=== PATIENT | male | born 1985 | race Caucasian/White ===

== ENCOUNTER 2018-01-09 08:22 | Emergency (ER) | payer OTHER ==
[2018-01-09 08:29] VITALS: BP 153/78; RESP 18; TEMP 98.2
[2018-01-09] MEDS ORDERED: ONDANSETRON 4 MG ODT STARTER PACK 2 TAB BTL PO STA (08:57)
--- NOTE | 2018-01-09 08:58 | ED ---
General Adult HPI - General Chief complaint: Nausea/Vomiting/Diarrhea Stated complaint: NAUSEA Time Seen by Provider: 01/09/18 08:49 Source: patient, RN notes reviewed Mode of arrival: ambulatory Limitations: no limitations - History of Present Illness Initial comments: Patient 32-year-old male who presents emergency room today with a chief complaint of feeling nauseated. He states he woke up this morning with some dry heaves. He does not that he was at a restaurant last night please may be food poisoning. 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 His x-rays been drinking lots of fluids. Patient states that he just needs something for nausea. He denies any other complaints or symptoms. Patient denies any recent fever, chills, shortness of breath, chest pain, back pain, abdominal pain, numbness or tingling, dysuria or hematuria, constipation or diarrhea, headaches or visual changes, or any other complaints. - Related Data Previous Rx's Medication Instructions Recorded Ondansetron Odt [Zofran ODT] 4 mg PO Q8HR PRN #10 tab 01/09/18 Allergies Allergy/AdvReac Type Severity Reaction Status Date / Time No Known Allergies Allergy Verified 01/09/18 08:41 Review of Systems ROS Statement: Those systems with pertinent positive or pertinent negative responses have been documented in the HPI. ROS Other: All systems not noted in ROS Statement are negative. 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 Eye: extra-ocular movements are intact. No nystagmus. There is normal conjunctiva bilaterally. No signs of icterus. Ears, nose, mouth and throat: There are moist mucous membranes and no oral lesions. Neck: The neck is supple, there is no tenderness or JVD. Cardiovascular: There is a regular rate and rhythm. No murmur, rub or gallop is appreciated. Respiratory: Lungs are clear to auscultation, respirations are non-labored, breath sounds are equal. No wheezes, stridor, rales, or rhonchi. Gastrointestinal: Soft, non-distended, non-tender abdomen without masses or organomegaly noted. There is no rebound or guarding present. No CVA tenderness. Musculoskeletal: Normal ROM, no tenderness. Strength 5/5. Sensation intact Neurological: A&O x 3. CN II-XII intact, There are no obvious motor or sensory deficits. Coordination appears grossly intact. Speech is normal. Skin: Skin is warm and dry and no rashes or lesions are noted. Psychiatric: Cooperative, appropriate mood & affect, normal judgment. Limitations: no limitations Course Vital Signs 01/09/18 08:27 Temperature 98.2 F Pulse Rate 113 H Respiratory 18 Rate Blood Pressure 153/78 O2 Sat by Pulse 96 Oximetry Medical Decision Making - Medical Decision Making Patient stating that he came to the emergency room for the presenting he would be able to work. He states that she is expressing nausea no pain. Patient declines any IV fluids or testing. Patient given starter pack of Zofran. Discharged home with a work note. Advised return if symptoms increase or worsen or for any other concerns. Disposition Clinical Impression: Nausea Disposition: HOME SELF-CARE Condition: Good Instructions: Acute Nausea and Vomiting (ED) Additional Instructions: Please use medication as discussed. Please follow-up with family doctor in the next 2 days of symptoms have not improved. Please return to emergency room if the symptoms increase or worsen or for any other concerns. Prescriptions: Ondansetron Odt [Zofran ODT] 4 mg PO Q8HR PRN #10 tab PRN Reason: Nausea Is patient prescribed a controlled substance at d/c from ED?: No Referrals: None,Stated [Primary Care Provider] - 1-2 days Time of Disposition: 08:56
[2018-01-09 08:59] VITALS: PULSE 98
== END 2018-01-09 09:14 | disposition home or self-care (01) ==
LOC: EC 08:22
DX: R11.2 Nausea with vomiting, unspecified (principal); F17.200 Nicotine dependence, unspecified, uncomplicated; Z86.19 Personal history of other infectious and parasitic diseases; Z86.14 Personal history of Methicillin resistant Staphylococcus aureus infection
CPT/HCPCS: 99283; S0119

== ENCOUNTER 2018-03-01 19:27 | Emergency (ER) | payer OTHER ==
--- NOTE | 2018-03-01 19:38 | ED ---
General Adult HPI - General Stated complaint: Overdose Time Seen by Provider: 03/01/18 19:29 Source: RN notes reviewed, old records reviewed - History of Present Illness Initial comments: This is a 32-year-old male presenting for evaluation regarding overdose. Patient presents regarding heroin overdose of Vistaril overdose as well as alcohol use today. Patient admits to going to increased stress stress related to job loss family, pain [place]. 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 ROS Other: All systems not noted in ROS Statement are negative. Past Medical History Past Medical History: No Reported History Additional Past Medical History / Comment(s): hep C History of Any Multi-Drug Resistant Organisms: None Reported, MRSA Date of last positivie culture/infection: 2012 MDRO Source:: back Past Surgical History: No Surgical Hx Reported Past Psychological History: Anxiety, Depression Smoking Status: Current every day smoker Past Alcohol Use History: None Reported Past Drug Use History: None Reported, Prescription Drug Abuse General Exam General appearance: alert, in no apparent distress Head exam: Present: atraumatic, normocephalic, normal inspection Eye exam: Present: normal appearance, PERRL, EOMI. Absent: scleral icterus, conjunctival injection, periorbital swelling ENT exam: Present: normal exam, mucous membranes moist Neck exam: Present: normal inspection. Absent: tenderness, meningismus, lymphadenopathy Respiratory exam: Present: normal lung sounds bilaterally. Absent: respiratory distress, wheezes, rales, rhonchi, stridor Cardiovascular Exam: Present: regular rate, normal rhythm, normal heart sounds. Absent: systolic murmur, diastolic murmur, rubs, gallop, clicks GI/Abdominal exam: Present: soft, normal bowel sounds. Absent: distended, tenderness, guarding, rebound, rigid Extremities exam: Present: normal inspection, full ROM, normal capillary refill. Absent: tenderness, pedal edema, joint swelling, calf tenderness Back exam: Present: normal inspection Neurological exam: Present: alert, oriented X3, CN II-XII intact Psychiatric exam: Present: normal affect, normal mood Skin exam: Present: warm, dry, intact, normal color. Absent: rash Course Vital Signs 03/01/18 19:43 Temperature 98.1 F Pulse Rate 112 H Respiratory 20 Rate Blood Pressure 139/76 O2 Sat by Pulse 94 L Oximetry - Reevaluation(s) Reevaluation #1: Patient is denying homicidal or suicidal thoughts Medical Decision Making - Medical Decision Making 32 male the ER for evaluation of overdose heroin overdose, patient resides with Narcan, remains asymptomatic throughout ER stay. Patient is awake and alert Disposition Clinical Impression: Heroin overdose Disposition: HOME SELF-CARE Condition: Good Instructions: Abuso de los narcticos (ED) Is patient prescribed a controlled substance at d/c from ED?: No Referrals: None,Stated [Primary Care Provider] - 1-2 days
[2018-03-01 19:47] VITALS: BP 139/76; PULSE 112; RESP 20; TEMP 98.1
== END 2018-03-01 20:20 | disposition home or self-care (01) ==
LOC: EC 19:27
DX: T40.1X1A Poisoning by heroin, accidental (unintentional), initial encounter (principal); F17.200 Nicotine dependence, unspecified, uncomplicated; Z86.19 Personal history of other infectious and parasitic diseases; Z86.14 Personal history of Methicillin resistant Staphylococcus aureus infection
CPT/HCPCS: 93005; 99284

== ENCOUNTER 2018-12-20 07:58 | Emergency (ER) | payer OTHER ==
--- NOTE | 2018-12-20 08:30 | ED ---
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 Patient is unsure if his symptoms related to illness or her reaction to his new environment. Patient states he's had no specific chills or fever but he did have some sweats yesterday after coming home from work is no history of sick contacts. He states that he looses symptoms are just related to starting this new job. He denies any other symptoms including back pain, abdominal pain. He did have an episode of dry heaving. - Related Data Previous Rx's Medication Instructions Recorded Albuterol Inhaler [Ventolin Hfa 1 - 2 puff INHALATION RT-Q6H PRN 12/20/18 Inhaler] #1 inhaler Fexofenadine/Pseudoephedrine 1 each PO BID #20 tab 12/20/18 [Abida-D 12 Hour Tablet] methylPREDNISolone Dose Pack 4 mg PO DIRECTED #21 package 12/20/18 [Medrol Dose Pack] Allergies Allergy/AdvReac Type Severity Reaction Status Date / Time No Known Allergies Allergy Verified 12/20/18 08:16 Review of Systems ROS Statement: Those systems with pertinent positive or pertinent negative responses have been documented in the HPI. ROS Other: All systems not noted in ROS Statement are negative. Past Medical History Past Medical History: No Reported History Additional Past Medical History / Comment(s): hep C History of Any Multi-Drug Resistant Organisms: MRSA Date of last positivie culture/infection: 2012 MDRO Source:: back Past Surgical History: No Surgical Hx Reported Past Psychological History: Anxiety, Depression Smoking Status: Current every day smoker Past Alcohol Use History: None Reported Past Drug Use History: Prescription Drug Abuse General Exam - General Exam Comments Initial Comments: This is a 33-year-old male. Alert and oriented. No distress. Limitations: no limitations General appearance: alert, in no apparent distress Head exam: Present: atraumatic, normocephalic, normal inspection Eye exam: Present: normal appearance, PERRL, EOMI. Absent: scleral icterus, conjunctival injection, periorbital swelling ENT exam: Present: normal exam, mucous membranes moist. Absent: normal oropharynx (Slightly erythematous no significant exudate.) Neck exam: Present: normal inspection. Absent: tenderness, meningismus, lymphadenopathy Respiratory exam: Present: normal lung sounds bilaterally. Absent: respiratory distress, wheezes, rales, rhonchi, stridor Cardiovascular Exam: Present: regular rate, normal rhythm, normal heart sounds. Absent: systolic murmur, diastolic murmur, rubs, gallop, clicks GI/Abdominal exam: Present: soft, normal bowel sounds. Absent: distended, tenderness, guarding, rebound, rigid Extremities exam: Present: normal inspection, full ROM, normal capillary refill. Absent: tenderness, pedal edema, joint swelling, calf tenderness Back exam: Present: normal inspection Neurological exam: Present: alert, oriented X3, CN II-XII intact Psychiatric exam: Present: normal affect, normal mood Skin exam: Present: warm, dry, intact, normal color. Absent: rash Course Vital Signs 12/20/18 08:01 Temperature 98.6 F Pulse Rate 99 Respiratory 20 Rate Blood Pressure 121/81 O2 Sat by Pulse 97 Oximetry Medical Decision Making - Medical Decision Making Patient is a 33-year-old male presents for started with cough congestion, sore throat. Some started 4 days. 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 Patient believes he may be having a reaction to exposure to chemicals related to making this foam. Patient has a slightly erythematous oropharynx. Rapid strep is negative. He complains of a slight dry cough. Patient is handling treated for exposure, nausea and wheezing noted on exam. Patient will be discharged with steroids, albuterol inhaler, ALLERGY medication. All questions answered. - Lab Data Lab Results 12/20/18 Range/Units 08:15 Group A Strep Rapid Negative (Negative) Disposition Clinical Impression: Allergic rhinitis, Congestion of respiratory tract Disposition: HOME SELF-CARE Condition: Good Instructions (If sedation given, give patient instructions): General Allergic Reaction (ED) Additional Instructions: Patient denies use of steroids and decongestant medicine as prescribed. He'll continue his composure related ALLERGY reaction. Patient should have close follow-up with your primary care doctor. If symptoms continue persist or worsen return for recheck. Prescriptions: Fexofenadine/Pseudoephedrine [Abida-D 12 Hour Tablet] 1 each PO BID #20 tab methylPREDNISolone Dose Pack [Medrol Dose Pack] 4 mg PO DIRECTED #21 package Albuterol Inhaler [Ventolin Hfa Inhaler] 1 - 2 puff INHALATION RT-Q6H PRN #1 inhaler PRN Reason: Shortness Of Breath Is patient prescribed a controlled substance at d/c from ED?: No Referrals: None,Stated [Primary Care Provider] - 1-2 days Time of Disposition: 09:39
[2018-12-20] MEDS ORDERED: predniSONE 50 MG TAB PO STA (09:36)
[2018-12-20] MEDS ORDERED: AZITHROMYCIN 500 MG TAB PO STA (09:36)
[2018-12-20 09:52] VITALS: BP 133/71; PULSE 71; RESP 19; TEMP 98.2
== END 2018-12-20 09:51 | disposition home or self-care (01) ==
LOC: EC 07:58
DX: J30.9 Allergic rhinitis, unspecified (principal); F17.200 Nicotine dependence, unspecified, uncomplicated; Z86.14 Personal history of Methicillin resistant Staphylococcus aureus infection; Z86.19 Personal history of other infectious and parasitic diseases
CPT/HCPCS: 87081; 87430; 99284; J7512

== ENCOUNTER 2019-03-22 20:23 | Emergency (ER) | payer OTHER ==
[2019-03-22 20:27] VITALS: TEMP 97.9
[2019-03-22] MEDS ORDERED: ONDANSETRON 4 MG/2 ML VIAL IVP STA (20:39)
[2019-03-22] MEDS ORDERED: SODIUM CHLORIDE 0.9% 1,000 ML IV STA (20:39)
[2019-03-22] MEDS ORDERED: PANTOPRAZOLE 40 MG/10 ML VIAL IVP STA (20:52)
--- NOTE | 2019-03-22 20:56 | ED ---
Chest Pain HPI - General Chief Complaint: Chest Pain Stated Complaint: Chest pain Time Seen by Provider: 03/22/19 20:31 Source: patient, RN notes reviewed, old records reviewed Mode of arrival: ambulatory Limitations: no limitations - History of Present Illness Initial Comments: This is a 33-year-old male who presents ER for evaluation of chest pain patient has no significant medical history does smoke, patient began with substernal chest pain while driving he pulled over the side of the road Lasix at that time the patient was having difficulty catching his breath he states he seems like he may have turned a little bluish did not pass out no chest pain resolved. Patient feels like he has a small gas bubble below his sternum. No abdominal pain no history of any GI disease or reflux. No surgical history. No recent fevers cough or congestion no travel history or sick contacts. Patient denies ER visit for chest pain before but he has the same chest pain before a few times over the past year never this severe. MD Complaint: chest pain -: minutes(s) Onset: during rest Pain Location: substernal Pain Radiation: none Severity: mild Severity scale (1-10): 3 Quality: other (Fullness) Consistency: constant, other (Improved) Improves With: nothing Worsens With: nothing Context: other (None) Anginal Symptoms: other (None) Other Symptoms: other (None) Treatments Prior to Arrival: none - Related Data Home Medications Medication Instructions Recorded Confirmed Acetaminophen [Tylenol Extra 1,000 mg PO TID PRN 03/22/19 03/22/19 Strength] Allergies Allergy/AdvReac Type Severity Reaction Status Date / Time No Known Allergies Allergy Verified 03/22/19 20:40 Review of Systems ROS Statement: Those systems with pertinent positive or pertinent negative responses have been documented in the HPI. ROS Other: All systems not noted in ROS Statement are negative. EKG Findings - EKG Comments: EKG Findings:: EKG shows normal sinus rhythm rate of 77, PA 146, QRS 06, QTc 420 Past Medical History Past Medical History: No Reported History Additional Past Medical History / Comment(s): hep C History of Any Multi-Drug Resistant Organisms: MRSA Date of last positivie culture/infection: 2012 MDRO Source:: back Past Surgical History: No Surgical Hx Reported Past Psychological History: Anxiety, Depression Smoking Status: Current every day smoker Past Alcohol Use History: None Reported Past Drug Use History: Prescription Drug Abuse General Exam Limitations: no limitations General appearance: alert, in no apparent distress Head exam: Present: atraumatic, normocephalic, normal inspection Eye exam: Present: normal appearance, EOMI. Absent: scleral icterus, conjunctival injection, periorbital swelling ENT exam: Present: normal exam, mucous membranes moist Neck exam: Present: normal inspection. Absent: tenderness, meningismus, lymphadenopathy Respiratory exam: Present: normal lung sounds bilaterally. Absent: respiratory distress, wheezes, rales, rhonchi, stridor Cardiovascular Exam: Present: normal rhythm, tachycardia, normal heart sounds. Absent: systolic murmur, diastolic murmur, rubs, gallop, clicks GI/Abdominal exam: Present: soft, normal bowel sounds. Absent: distended, tenderness, guarding, rebound, rigid Extremities exam: Present: normal inspection, full ROM, normal capillary refill. Absent: tenderness, pedal edema, joint swelling, calf tenderness Back exam: Present: normal inspection Neurological exam: Present: alert, oriented X3, CN II-XII intact Psychiatric exam: Present: normal affect, normal mood Skin exam: Present: warm, dry, intact, normal color. Absent: rash Course Vital Signs 03/22/19 20:24 Temperature 97.9 F Pulse Rate 102 H Respiratory 20 Rate Blood Pressure 137/88 O2 Sat by Pulse 97 Oximetry - Reevaluation(s) Reevaluation #1: 03/22/19 22:02 Medical record review Reevaluation #2: 03/22/19 22:02 Patient has no pain Chest Pain MDM - MDM 70 female the ER for evaluation patient resents today for evaluation of chest pain nonspecific chest pain is been on and off for a year. Computed tomography scan is negative labwork is normal patient can be discharged home Disposition Clinical Impression: Chest pain, Atypical chest pain Disposition: HOME SELF-CARE Condition: Good Instructions (If sedation given, give patient instructions): Chest Pain (ED) Is patient prescribed a controlled substance at d/c from ED?: No Referrals: None,Stated [Primary Care Provider] - 1-2 days
[2019-03-22 21:01] LABS: Basophils # (A) 0.1 k/uL (0-0.2); Basophils % (A) 1 %; Eosinophils # (A) 0.2 k/uL (0-0.7); Eosinophils % (A) 2 %; HCT 47.9 % (39.0-53.0); HGB 15.4 gm/dL (13.0-17.5); Lymphocytes # (A) 2.4 k/uL (1.0-4.8); Lymphocytes % (A) 27 %; MCH 27.5 pg (25.0-35.0); MCHC 32.2 g/dL (31.0-37.0); MCV 85.3 fL (80.0-100.0); Mean Platelet Volume 6.4; Monocytes # (A) 0.4 k/uL (0-1.0); Monocytes % (A) 4 %; Neutrophils # (A) 5.6 k/uL (1.3-7.7); Neutrophils % (A) 63 %; Platelet Count 265 k/uL (150-450); RBC 5.62 m/uL (4.30-5.90); RDW 13.4 % (11.5-15.5); WBC 8.8 k/uL (3.8-10.6)
[2019-03-22 21:09] LABS: ALT 34 U/L (21-72); AST 30 U/L (17-59); African American GFR (CKD) >90 (>60 ml/min/1.73 sqM); Albumin 4.7 g/dL (3.5-5.0); Alkaline Phosphatase 45 U/L (38-126); Anion Gap 9 mmol/L; Blood Urea Nitrogen 14 mg/dL (9-20); Calcium 9.7 mg/dL (8.4-10.2); Carbon Dioxide 27 mmol/L (22-30); Chloride 104 mmol/L (98-107); Creatine Kinase 82 U/L (55-170); Glucose 78 mg/dL (74-99); Magnesium 2.1 mg/dL (1.6-2.3); Potassium 4.1 mmol/L (3.5-5.1); Sodium 140 mmol/L (137-145); Total Bilirubin 0.6 mg/dL (0.2-1.3); Total Protein 7.7 g/dL (6.3-8.2)
[2019-03-22 21:10] LABS: Partial Thromboplastin Time 24.3 sec (22.0-30.0); Prothrombin Time 10.3 sec (9.0-12.0)
--- NOTE | 2019-03-22 21:44 | CT ---
EXAMINATION TYPE: CT angio chest DATE OF EXAM: 03/22/2019 9:32 PM COMPARISON: None HISTORY: Difficulty breathing, anterior chest pain to right of center. CT DLP: 424.1 mGycm Automated exposure control for dose reduction was used. CONTRAST: CTA scan of the thorax is performed with IV Contrast, patient injected with 83 mL of Isovue 370, pulm onary embolism protocol. . There are 3-D post processed images. FINDINGS: The lungs are clear. There is no pleural effusion. There is no evidence of a pulmonary mass. There ar e emphysematous changes at the lung apices. There is no mediastinal adenopathy. There are no hilar masses. Heart size is normal. Thoracic aorta a ppears normal. There is no aneurysm or dissection. There is normal contrast opacification of the pulmonary arteries. There are no filling defects. Upper abdominal soft tissues are unremarkable. The bony thorax is intact. There is minimal biconcave fu e of upper thoracic vertebra that could relate to some osteomalacia. IMPRESSION: NO EVIDENCE OF PULMONARY EMBOLISM. MINIMAL PULMONARY EMPHYSEMA. POSSIBLE OSTEOMALACIA.
[2019-03-22] MEDS ORDERED: MAG HYDROX/AL HYDROX/SIMETH 30 ML, HYOSCYAMINE ELIXIR 10 ML, CIMETIDINE HCL 300 MG PO STA ×3 (21:51)
[2019-03-22] MEDS ORDERED: LIDOCAINE 5% PATCH TOPICAL SCH (22:10)
[2019-03-22 22:20] VITALS: BP 110/83; PULSE 80; RESP 16
== END 2019-03-22 22:20 | disposition home or self-care (01) ==
LOC: EC 20:23
DX: R07.89 Other chest pain (principal); F17.200 Nicotine dependence, unspecified, uncomplicated
CPT/HCPCS: 99285; 96374; 96375; 96361; 36415; 93005; 83880; 80053; 82550; 83690; 83735; 84484; 85025; 85610; 85730; 71275; J2405; C9113; Q9967

== ENCOUNTER 2019-04-09 09:19 | Emergency (ER) | payer OTHER ==
[2019-04-09 09:24] VITALS: TEMP 97.8
--- NOTE | 2019-04-09 09:56 | ED ---
Chest Pain HPI - General Chief Complaint: Chest Pain Stated Complaint: chest pain Time Seen by Provider: 04/09/19 09:34 Source: patient, RN notes reviewed Mode of arrival: ambulatory Limitations: no limitations - History of Present Illness Initial Comments: This a 33-year-old male presents emergency Department with chief complaint of chest discomfort. Patient states symptoms started this morning. Patient was seen here last week for similar complaints states that he's had no symptoms since states he just and aunt states that he felt that he had some gas stuck in his chest or stomach. Patient states that he tried belching states he tried drinking some pop with no relief. Patient does hurt when he takes a full deep inspiration. He reports no prior cardiac disease including hypertension, hyperlipidemia, diabetes there is some mild family heart disease. Patient is a smoker currently. Denies any chemical exposures no new environments other he states he started a new job 3 weeks ago. Patient states he was not doing anything strenuous when it started he has no complaints of nausea vomiting diarrhea constipation this time. He states he did have some dry heaving before. - Related Data Previous Rx's Medication Instructions Recorded Omeprazole 40 mg PO DAILY #14 capsule. 04/09/19 Allergies Allergy/AdvReac Type Severity Reaction Status Date / Time No Known Allergies Allergy Verified 04/09/19 09:58 Review of Systems ROS Statement: Those systems with pertinent positive or pertinent negative responses have been documented in the HPI. ROS Other: All systems not noted in ROS Statement are negative. EKG Findings - EKG Comments: EKG Findings:: EKG performed at 9:50 normal sinus rhythm rate of 69 AL 134 QRS 100 QT/QTC 352/377 Past Medical History Past Medical History: No Reported History Additional Past Medical History / Comment(s): hep C History of Any Multi-Drug Resistant Organisms: MRSA Date of last positivie culture/infection: 2012 MDRO Source:: back Past Surgical History: No Surgical Hx Reported Past Psychological History: Anxiety, Depression Smoking Status: Current every day smoker Past Alcohol Use History: None Reported Past Drug Use History: Prescription Drug Abuse General Exam Limitations: no limitations General appearance: alert, in no apparent distress Head exam: Present: atraumatic, normocephalic, normal inspection Eye exam: Present: normal appearance, PERRL, EOMI. Absent: scleral icterus, conjunctival injection, periorbital swelling ENT exam: Present: normal exam, mucous membranes moist, TM's normal bilaterally Neck exam: Present: normal inspection. Absent: tenderness, meningismus, lymphadenopathy Respiratory exam: Present: normal lung sounds bilaterally, chest wall tenderness (Mild discomfort along the left sternal border). Absent: respiratory distress, wheezes, rales, rhonchi, stridor Cardiovascular Exam: Present: regular rate, normal rhythm, normal heart sounds. Absent: systolic murmur, diastolic murmur, rubs, gallop, clicks GI/Abdominal exam: Present: soft, normal bowel sounds. Absent: distended, tenderness, guarding, rebound, rigid Course Vital Signs 04/09/19 04/09/19 04/09/19 09:21 09:45 10:24 Temperature 97.8 F Pulse Rate 97 68 Pulse Rate [ 69 [employer] ] Respiratory 17 18 Rate Blood Pressure 118/79 117/74 O2 Sat by Pulse 98 98 Oximetry 04/09/19 12:25 Temperature Pulse Rate 68 Pulse Rate [ [employer] ] Respiratory 18 Rate Blood Pressure 118/80 O2 Sat by Pulse 98 Oximetry Disposition Clinical Impression: Atypical chest pain, GERD (gastroesophageal reflux disease) Disposition: HOME SELF-CARE Condition: Stable Instructions (If sedation given, give patient instructions): Chest Pain (ED) Additional Instructions: Please return to the Emergency Department if symptoms worsen or any other concerns. Prescriptions: Omeprazole 40 mg PO DAILY #14 capsule.dr Is patient prescribed a controlled substance at d/c from ED?: No Referrals: None,Stated [Primary Care Provider] - 1-2 days Time of Disposition: 13:09
[2019-04-09 10:14] LABS: Basophils % (A) 0 %; Eosinophils # (A) 0.2 k/uL (0-0.7); Eosinophils % (A) 2 %; HCT 47.4 % (39.0-53.0); HGB 16.2 gm/dL (13.0-17.5); Lymphocytes # (A) 1.6 k/uL (1.0-4.8); Lymphocytes % (A) 20 %; MCH 28.5 pg (25.0-35.0); MCHC 34.3 g/dL (31.0-37.0); MCV 83.1 fL (80.0-100.0); Mean Platelet Volume 5.6; Monocytes # (A) 0.3 k/uL (0-1.0); Monocytes % (A) 4 %; Neutrophils % (A) 73 %; Platelet Count 274 k/uL (150-450); RDW 12.9 % (11.5-15.5); WBC 8.2 k/uL (3.8-10.6)
[2019-04-09 10:32] LABS: Partial Thromboplastin Time 24.9 sec (22.0-30.0); Prothrombin Time 10.5 sec (9.0-12.0)
[2019-04-09 10:35] LABS: ALT 47 U/L (21-72); AST 32 U/L (17-59); African American GFR (CKD) >90 (>60 ml/min/1.73 sqM); Albumin 4.6 g/dL (3.5-5.0); Alkaline Phosphatase 42 U/L (38-126); Anion Gap 11 mmol/L; Blood Urea Nitrogen 9 mg/dL (9-20); Calcium 9.5 mg/dL (8.4-10.2); Carbon Dioxide 24 mmol/L (22-30); Chloride 105 mmol/L (98-107); Glucose 90 mg/dL (74-99); Magnesium 1.9 mg/dL (1.6-2.3); Potassium 4.6 mmol/L (3.5-5.1); Sodium 140 mmol/L (137-145); Total Bilirubin 0.7 mg/dL (0.2-1.3)
--- NOTE | 2019-04-09 10:57 | XR ---
EXAMINATION TYPE: XR chest 2V DATE OF EXAM: 04/09/2019 COMPARISON: 06/20/2013 HISTORY: Chest pressure and shortness of breath TECHNIQUE: Frontal and lateral views of the chest are obtained. FINDINGS: There is no focal air space opacity, pleural effusion, or pneumothorax seen. The cardiac silhouette size is within normal limits. The osseous structures are intact. Slight superior endplat e deformity of the mid to upper thoracic spine vertebral bodies are unchanged from 2012 and likely on the basis of degenerative disc disease at the anterior aspect of the vertebral body heights are main tained. IMPRESSION: No acute cardiopulmonary process.
[2019-04-09 13:16] VITALS: BP 120/77; PULSE 76; RESP 16
== END 2019-04-09 13:15 | disposition home or self-care (01) ==
LOC: EC 09:19
DX: K21.9 Gastro-esophageal reflux disease without esophagitis (principal); F17.200 Nicotine dependence, unspecified, uncomplicated; Z86.14 Personal history of Methicillin resistant Staphylococcus aureus infection; Z82.49 Family history of ischemic heart disease and other diseases of the circulatory system
CPT/HCPCS: 36415; 71046; 80053; 83690; 83735; 84484; 85025; 85610; 85730; 93005; 99285